=== PATIENT | female | born 1935 | race Caucasian/White ===

== ENCOUNTER 2020-10-27 16:27 | Inpatient (IN) | payer OTHER ==
[~2020-10-27] VITALS: Ht 160 cm; Wt 90.7 kg
[~2020-10-27 16:27] MED LIST: ASPIR 8181 MG PO; ASPIRIN CHEWABL81 MG PO; ATIVAN0.5 MG PO; COLACE 100MG C100 MG PO; COREG 12.5MG12.5 MG PO; D3 DOTS2000 UNIT PO; FUROSEMIDE20 MG PO; IMDUR ER TAB 3030 MG PO; IRON PO; ISORDIL TAB 3030 MG PO; K-DUR TAB 10 M10 MEQ PO; LANTUS100 UNIT/1 SC; LANTUS100 UNIT/1 SQ; LEVAQUIN TAB 5500 MG PO; NITRO-DUR1 EACH TOP; NITROSTAT 0.40.4 MG PO; NORVASC 5 MG TAB5 MG PO; NOVOLOG MI100 UNIT/1 SQ; NOVOLOG100 UNIT/1 SC; OMNICEF 300 MG300 MG PO; PROAIR HFA8.5 GM INH; PROTONIX40 MG PO; TRAVATAN Z EYEBOTH; TRAZODONE HCL100 MG PO; VITAMIN D325 MC6 PO; Z PAK; ZANTAC 7575 MG PO; ZOCOR 10 MG TAB10 MG PO; ZOCOR10 MG PO; ZOCOR40 MG PO; ZYLOPRIM 300 M300 MG PO
[2020-10-27 17:30] LABS: HEMOGLOBIN 13.5 gm/dl (12.3-15.3); RED BLOOD COUNT 4.7 M/UL (4.00-5.10); WHITE BLOOD COUNT 7.7 K/UL (4.5-11.0)
[2020-10-27 17:55] LABS: BUN/CREATININE RATIO 19 (0-10)
[2020-10-28] MEDS ORDERED: ARICEPT5 MG PO (00:04)
[2020-10-28] MEDS ORDERED: ZESTRIL2.5 MG PO (00:05)
[2020-10-28] MEDS ORDERED: LOPRESSOR 25 MG25 MG PO (00:08)
[2020-10-28] MEDS ORDERED: COMBIGAN EYE DRO5 ML EYEBOTH (00:10)
[2020-10-28] MEDS ORDERED: LATANOPROST 0.7.5 ML EYEBOTH (00:10)
[2020-10-29 08:11] LABS: HEMOGLOBIN 13.2 gm/dl (12.3-15.3); RED BLOOD COUNT 4.55 M/UL (4.00-5.10); WHITE BLOOD COUNT 8.7 K/UL (4.5-11.0)
[2020-10-30 05:47] LABS: HEMOGLOBIN 12.6 gm/dl (12.3-15.3); RED BLOOD COUNT 4.31 M/UL (4.00-5.10); WHITE BLOOD COUNT 8.5 K/UL (4.5-11.0)
[2020-10-30] MEDS ORDERED: CEFUROXIME250 MG PO (11:04)
[2020-10-31 08:19] LABS: HEMOGLOBIN 12.3 gm/dl (12.3-15.3); RED BLOOD COUNT 4.32 M/UL (4.00-5.10)
[2020-10-31 08:23] LABS: WHITE BLOOD COUNT 11.2 K/UL (4.5-11.0)
[2020-11-01 04:17] LABS: RED BLOOD COUNT 4.5 M/UL (4.00-5.10); WHITE BLOOD COUNT 11.3 K/UL (4.5-11.0)
[2020-11-02 06:23] LABS: HEMOGLOBIN 11.4 gm/dl (12.3-15.3)
[2020-11-02 06:24] LABS: RED BLOOD COUNT 3.99 M/UL (4.00-5.10); WHITE BLOOD COUNT 6.3 K/UL (4.5-11.0)
== END 2020-11-02 17:50 | DRG 689 ==
LOC: ER1 16:27 → CDU 20:30 → MED SURG 4 20:30
PROVIDERS: Internal Medicine; Nurse Practitioner; Physician Assistant; ADMIT Internal Medicine
DX: N30.00 Acute cystitis without hematuria (principal); G93.41 Metabolic encephalopathy; I13.0 Hypertensive heart and chronic kidney disease with heart failure and stage 1 through stage 4 chronic kidney disease, or unspecified chronic kidney disease; I50.22 Chronic systolic (congestive) heart failure; J98.11 Atelectasis; Z20.822 Contact with and (suspected) exposure to COVID-19; N17.9 Acute kidney failure, unspecified; E11.649 Type 2 diabetes mellitus with hypoglycemia without coma; E11.22 Type 2 diabetes mellitus with diabetic chronic kidney disease; N18.30 Chronic kidney disease, stage 3 unspecified; I44.7 Left bundle-branch block, unspecified; F03.90 Unspecified dementia, unspecified severity, without behavioral disturbance, psychotic disturbance, mood disturbance, and anxiety; Z79.899 Other long term (current) drug therapy; Z79.4 Long term (current) use of insulin; Z79.82 Long term (current) use of aspirin
CPT/HCPCS: 36415; 36600; 70450; 71045; 80048; 80053; 81001; 82550; 82553; 82803; 82962; 83036; 83874; 84484; 85025; 87040; 87086; 93005; 94640; 94760; 96365; 97162; 99285; J0696; J1644; J7030; U0002

== ENCOUNTER 2020-11-28 17:36 | Inpatient (IN) | payer OTHER ==
[~2020-11-28] VITALS: Ht 160 cm; Wt 80.9 kg
[~2020-11-28 17:36] MED LIST changes: +ARICEPT5 MG PO; +CEFUROXIME250 MG PO; +COMBIGAN EYE DRO5 ML EYEBOTH; +LATANOPROST 0.7.5 ML EYEBOTH; +LOPRESSOR 25 MG25 MG PO; +ZESTRIL2.5 MG PO
[2020-11-28 18:35] LABS: HEMOGLOBIN 11.4 gm/dl (12.3-15.3); RED BLOOD COUNT 3.92 M/UL (4.00-5.10); WHITE BLOOD COUNT 10.6 K/UL (4.5-11.0)
[2020-11-28] MEDS ORDERED: MAPAP325 MG PO (21:10)
[2020-11-28] MEDS ORDERED: ATIVAN0.5 MG PO (21:12)
[2020-11-28] MEDS ORDERED: REMERON15 MG PO (21:23)
[2020-12-01 03:26] LABS: HEMOGLOBIN 11.1 gm/dl (12.3-15.3); RED BLOOD COUNT 3.91 M/UL (4.00-5.10)
[2020-12-01 03:35] LABS: WHITE BLOOD COUNT 5.4 K/UL (4.5-11.0)
[2020-12-02 09:21] LABS: HEMOGLOBIN 12.2 gm/dl (12.3-15.3); RED BLOOD COUNT 4.26 M/UL (4.00-5.10)
[2020-12-05 04:09] LABS: HEMOGLOBIN 10.6 gm/dl (12.3-15.3)
[2020-12-05 04:10] LABS: RED BLOOD COUNT 3.72 M/UL (4.00-5.10); WHITE BLOOD COUNT 4.9 K/UL (4.5-11.0)
[2020-12-05] MEDS ORDERED: ZOSYN 2.252.25 GM/50 IV (13:47)
[2020-12-05] MEDS ORDERED: HUMALOG100 UNIT/1 SC (13:50)
== END 2020-12-05 18:30 | DRG 682 ==
LOC: ER1 17:36 → CDU 20:52 → MED SURG 4 11-29 17:47
PROVIDERS: Family Medicine; Internal Medicine; Physician Assistant; Physician Assistant Medical; ADMIT Internal Medicine
DX: N17.9 Acute kidney failure, unspecified (principal); G93.41 Metabolic encephalopathy; I13.0 Hypertensive heart and chronic kidney disease with heart failure and stage 1 through stage 4 chronic kidney disease, or unspecified chronic kidney disease; I50.22 Chronic systolic (congestive) heart failure; N39.0 Urinary tract infection, site not specified; J96.11 Chronic respiratory failure with hypoxia; J98.11 Atelectasis; E11.22 Type 2 diabetes mellitus with diabetic chronic kidney disease; N18.30 Chronic kidney disease, stage 3 unspecified; B96.5 Pseudomonas (aeruginosa) (mallei) (pseudomallei) as the cause of diseases classified elsewhere; Z79.4 Long term (current) use of insulin; M10.9 Gout, unspecified; Z20.822 Contact with and (suspected) exposure to COVID-19; R33.9 Retention of urine, unspecified; F03.90 Unspecified dementia, unspecified severity, without behavioral disturbance, psychotic disturbance, mood disturbance, and anxiety; N81.10 Cystocele, unspecified; Z80.9 Family history of malignant neoplasm, unspecified; Z82.49 Family history of ischemic heart disease and other diseases of the circulatory system; Z79.899 Other long term (current) drug therapy
CPT/HCPCS: 36415; 51702; 71045; 80048; 80053; 81001; 82550; 82553; 82962; 83605; 83735; 83874; 84132; 84484; 85025; 85027; 85610; 87077; 87086; 87186; 93005; 94760; 96374; 99285; G0378; J0696; J1650; J2543; J7030; J7042; U0002